=== PATIENT | male | born 1990 | race Hispanic/Latino ===

== ENCOUNTER 2020-07-29 20:28 | Observation (INO) | payer SELFPAY ==
[~2020-07-29 20:28] MED LIST: Iopamidol 370 76% 100 ML VIAL ONE
[2020-07-29 20:53] LABS: Bacteria/HPF None Seen HPF (None Seen); Bilirubin Negative (Negative); Blood, Urine Negative (Negative); Clarity Clear (Clear); Glucose, Urine (Dipstick) Normal (Negative); Ketone, Urine Negative (Negative); Leukocyte Negative Leu/uL (Negative); Nitrite Negative (Negative); Protein, Urine (Dipstick) 70 mg/dL (Neg-Trace); RBC/HPF 0-3 HPF (0-3); Specific Gravity, Urine 1.035 (1.002-1.036); Squamous Epithelial None Seen HPF (0-3); Urobilinogen Normal mg/dL (Less than 2); WBC/HPF 0-3 HPF (0-3); pH, Urine 5.5 (5.0-9.0)
[2020-07-29] MEDS ORDERED: Morphine 4 MG/ML VIAL ONE (21:09)
[2020-07-29] MEDS ORDERED: Ondansetron PF 4 MG/2 ML Vial ONE (21:09)
[2020-07-29 21:10] LABS: #Lymphocytes 1.5 thou/uL (1.20-3.40); %Basophils 0.1 % (0.0-1.0); %Eosinophils 0.1 % (0.0-10.0); %Lymphocytes 9.1 % (21.0-51.0); %Monocytes 5.9 % (0.0-10.0); %Neutrophils 84.8 % (42.0-75.0); Hemoglobin 15.7 g/dL (14.0-18.0); Mean Corpuscular HGB CONC 33.9 g/dL (32.0-36.0); Mean Corpuscular Hemoglobin 30.2 pg (27.0-31.0); Mean Corpuscular Volume 89.3 fL (78.0-98.0); Mean Platelet Volume 8.2 fL (7.4-10.4); Platelet Count 245 thou/uL (130-400); RBC Distribution Width 12.6 % (11.5-14.5); Red Blood Cell (RBC) Count 5.19 mill/uL (4.70-6.10); White Blood Cell (WBC) Count 16.5 thou/uL (4.8-10.8)
[2020-07-29 21:36] LABS: ALT (SGPT) 37 U/L (8-55); AST (SGOT) 29 U/L (5-34); Albumin 4.5 g/dL (3.5-5.0); Alkaline Phosphatase 61 U/L (40-110); Anion Gap 13 mmol/L (10-20); BUN (Urea Nitrogen) 20 mg/dL (8.9-20.6); Bilirubin, Total 0.5 mg/dL (0.2-1.2); Calc. Creatinine Clearance 0 mL/min (70-130); Calcium 9.9 mg/dL (7.8-10.44); Carbon Dioxide 26 mmol/L (22-29); Chloride 104 mmol/L (98-107); Estimated GFR-MDRD 87; Globulin 3.7 g/dL (2.4-3.5); Glucose 117 mg/dL (70-105); Potassium 4.4 mmol/L (3.5-5.1); Protein, Total 8.2 g/dL (6.0-8.3); Sodium 139 mmol/L (136-145)
--- NOTE | 2020-07-29 21:58 | CT ---
CT abdomen and pelvis with IV contrast HISTORY: Abdomen pain. FINDINGS: The lung bases are clear. Solid organs are intact. Circumaortic left renal vein is noted. No evidence of bowel obstruction. Multiple hyperdense fecaliths are present within the appendix that is dilated up to 1.1 cm and shows a thickened wall and small amount of adjacent fat stranding. No free air or free fluid. IMPRESSION : Acute appendicitis. Multiple internal appendicoliths. No evidence of complication.
[2020-07-29] MEDS ORDERED: Piperacillin/Tazobactam 3.375 GM VIAL ONE (22:17)
[2020-07-29] MEDS ORDERED: Morphine 4 MG/ML VIAL SLOW IVP PRN (23:39)
[2020-07-29] MEDS ORDERED: Ondansetron PF 4 MG/2 ML Vial IVP PRN (23:45)
[2020-07-29] MEDS ORDERED: Ondansetron ODT 4 MG TAB SL PRN (23:45)
[2020-07-30] MEDS: Sodium Chloride 0.9% 1,000 ML IV SCH ×3 (00:23→08:13)
[2020-07-30 01:15] VITALS: BMI 38.9
[2020-07-30] MEDS: Piperacillin/Tazobactam 3.375 GM in Sodium Chloride 0.9% 100 ML IVPB SCH ×3 (03:31→17:50)
--- NOTE | 2020-07-30 08:03 | HP ---
CHIEF COMPLAINT: Right lower quadrant abdominal pain. HISTORY OF PRESENT ILLNESS: The patient is a 30-year-old male with a 2-day history of right lower quadrant pain associated with nausea. No vomiting. No fever. CT shows appendicitis. PAST MEDICAL HISTORY: Obesity. PAST SURGICAL HISTORY: None. MEDICATIONS: No medications. ALLERGIES: NO KNOWN DRUG ALLERGIES. SOCIAL HISTORY: He is . He works in construction. No tobacco or alcohol. FAMILY HISTORY: Noncontributory. PHYSICAL EXAMINATION: VITAL SIGNS: Temperature 98.4, pulse 89, blood pressure 118/73. GENERAL: He is awake, alert, no apparent distress. HEENT: Unremarkable. LUNGS: Clear. HEART: Regular rate and rhythm. ABDOMEN: Soft. He is very tender with percussion tenderness in the right lower quadrant. No palpable mass. EXTREMITIES: Unremarkable. LABORATORY DATA: His white count is 16.5, H and H 15 and 46, platelet count 245. Electrolytes are fine. Elevated glucose of 117. Urinalysis clear. CT scan shows acute nonperforated appendicitis. ASSESSMENT: Acute appendicitis. PLAN: Laparoscopic appendectomy. CONSENT: I have discussed planned procedure as well as risk of bleeding, infection, injury to bowel and bladder, need to open. He understands and gives informed consent. Job ID: [id number]
[2020-07-30 08:58] LABS: SARS-CoV-2 NAA Rapid Test Not Detected (NotDetected)
[2020-07-30] MEDS ORDERED: PROPOFOL 200 MG/20 ML VIAL ONE (10:14)
[2020-07-30] MEDS ORDERED: Dexamethasone 20 MG/5 ML VIAL ONE (10:14)
[2020-07-30] MEDS ORDERED: Lidocaine 1% PF 5 ML VIAL ONE (10:14)
[2020-07-30] MEDS ORDERED: Succinylcholine 200 MG/10 ml SYRINGE FS ONE (10:14)
[2020-07-30] MEDS ORDERED: Rocuronium Bromide 10 MG/ML (10ML VIAL) ONE (10:14)
[2020-07-30] MEDS ORDERED: Ondansetron PF 4 MG/2 ML Vial ONE (10:14)
[2020-07-30] MEDS ORDERED: Glycopyrrolate 0.2 MG/ML 5 ML SYRINGE ONE (10:14)
[2020-07-30] MEDS ORDERED: Lidocaine 1% w/Epinephrine 1:100K 20 ML VIAL ONE (10:39)
[2020-07-30] MEDS ORDERED: Bupivacaine 0.25% HCL 30 ML VIAL ONE (10:39)
[2020-07-30] MEDS ORDERED: Fentanyl 100 MCG/2 ML VIAL ONE (11:04)
[2020-07-30] MEDS ORDERED: Midazolam HCl 2 mg/2 ml Vial ONE (11:04)
[2020-07-30] MEDS ORDERED: Promethazine HCl 25 MG/ML VIAL IM PRN ×2 (12:10→12:11)
[2020-07-30] MEDS ORDERED: Ondansetron HCl/PF 4 MG/2 ML Vial IVP PRN (12:10)
[2020-07-30] MEDS ORDERED: Promethazine HCl 25 MG/ML VIAL SLOW IVP PRN (12:10)
[2020-07-30] MEDS ORDERED: HYDROcodone/Acetaminophen 10/325 mg Tablet PO PRN ×2 (12:11)
[2020-07-30] MEDS ORDERED: Morphine 4 MG/ML VIAL SLOW IVP PRN (12:11)
[2020-07-30] MEDS ORDERED: Ondansetron PF 4 MG/2 ML Vial IVP PRN (12:11)
[2020-07-30] MEDS ORDERED: hydrALAZINE 20 MG/ML VIAL SLOW IVP PRN (12:11)
[2020-07-30] MEDS ORDERED: Dextrose 5% in Water 1,000 ML IV PRN (12:11)
[2020-07-30] MEDS ORDERED: Morphine 2 MG/ML VIAL SLOW IVP PRN (12:11)
[2020-07-30] MEDS ORDERED: Dextrose 50% Abboject 50 ML SYRINGE SLOW IVP PRN (12:11)
--- NOTE | 2020-07-30 13:25 | OP ---
DATE OF PROCEDURE: 07/30/2020 PREOPERATIVE DIAGNOSIS: Acute appendicitis. PROCEDURE PERFORMED: Laparoscopic appendectomy. INDICATIONS: A 30-year-old male with a 2-day history of right lower quadrant pain associated with nausea. CT scan showed acute appendicitis. FINDINGS: Gangrenous appendicitis with local perforation. DESCRIPTION OF PROCEDURE: After informed consent was obtained, the patient was taken to the operating room, given general endotracheal anesthesia, placed in supine position. Abdomen was prepped and draped in usual fashion. Local anesthesia was infiltrated subcutaneously and deep. A subumbilical incision was performed. Subcu divided sharply. The fascia was grasped and 2 stay sutures of 0 Vicryl placed through each side of midline and midline incised. Digital palpation revealed no local adhesions. Blunt 12-mm trocar inserted. Pneumoperitoneum was created to a pressure of 15 mmHg. A 0-degree laparoscope inserted under direct vision. Two 5-mm ports were placed, one suprapubic, one right lateral abdomen. There was some cloudy peritoneal fluid surrounding the gangrenous appendix. The mesoappendix was divided utilizing the LigaSure. The base of appendix was divided utilizing a linear 45-mm white load stapler. The appendix placed in an Endosac, removed from the abdomen through the umbilical port in the Endosac, applying a sputum trap. Cloudy peritoneal fluid from the pelvis was aspirated and collected for specimen for cultures. Then, once this was all cleaned, the area was thoroughly irrigated with saline. Hemostasis was assured. Trocars and retractors removed. The fascia was closed with interrupted 0 Vicryl suture. The skin closed with interrupted 4-0 Rapide. Dermabond applied. The patient tolerated the procedure well and transferred to Recovery in good condition. Sponge and needle count verified correct x2. Job ID: [id number]
[2020-07-30] MEDS: D5 1/2 NS w/20 mEq KCL 1,000 ML IV SCH ×2 (14:10→22:00)
[2020-07-30] MEDS: Ketorolac Tromethamine 30 MG/ML VIAL IVP SCH (17:49)
[2020-07-30] MEDS: Famotidine/PF 20 mg/2ml Vial SLOW IVP SCH (19:26)
[2020-07-30] MEDS: Famotidine 20 MG TAB PO SCH (21:17)
[2020-07-31] MEDS: Piperacillin/Tazobactam 3.375 GM in Sodium Chloride 0.9% 100 ML IVPB SCH ×2 (01:04→06:21)
[2020-07-31] MEDS: Ketorolac Tromethamine 30 MG/ML VIAL IVP SCH ×2 (01:05→06:20)
[2020-07-31] MEDS: D5 1/2 NS w/20 mEq KCL 1,000 ML IV SCH (01:05)
[2020-07-31 07:21] LABS: #Monocytes 0.9 thou/uL (0.11-0.59); #Neutrophils 8.1 thou/uL (1.40-6.50); %Basophils 0.2 % (0.0-1.0); %Eosinophils 0.1 % (0.0-10.0); %Lymphocytes 17.9 % (21.0-51.0); %Monocytes 8.1 % (0.0-10.0); %Neutrophils 73.7 % (42.0-75.0); Mean Corpuscular HGB CONC 33.7 g/dL (32.0-36.0); Mean Corpuscular Hemoglobin 30.8 pg (27.0-31.0); Mean Corpuscular Volume 91.4 fL (78.0-98.0); Mean Platelet Volume 8.3 fL (7.4-10.4); Platelet Count 223 thou/uL (130-400); RBC Distribution Width 12.7 % (11.5-14.5); Red Blood Cell (RBC) Count 4.55 mill/uL (4.70-6.10)
[2020-07-31 07:34] VITALS: BP 128/82; TEMP 98
[2020-07-31 07:43] LABS: Anion Gap 13 mmol/L (10-20); BUN (Urea Nitrogen) 14 mg/dL (8.9-20.6); Calc. Creatinine Clearance 204 mL/min (70-130); Calcium 8.4 mg/dL (7.8-10.44); Carbon Dioxide 20 mmol/L (22-29); Chloride 105 mmol/L (98-107); Estimated GFR-MDRD Greater than 90; Glucose 112 mg/dL (70-105); Sodium 134 mmol/L (136-145)
[2020-07-31] MEDS: Famotidine/PF 20 mg/2ml Vial SLOW IVP SCH (08:31)
[2020-07-31] MEDS: Famotidine 20 MG TAB PO SCH (08:38)
[2020-07-31] MEDS ORDERED: Enoxaparin Sodium 40 MG/0.4 ML SYRINGE SC SCH (09:00)
--- NOTE | 2020-08-02 08:31 | DIS ---
DATE OF ADMISSION: 07/29/2020 DATE OF DISCHARGE: 07/31/2020 DISCHARGE DIAGNOSIS: Gangrenous appendicitis. PROCEDURES DURING ADMISSION: Laparoscopic appendectomy. HOSPITAL COURSE: The patient was admitted, taken to the operating room, where he underwent a laparoscopic appendectomy. Postoperatively, he has done well. He has remained afebrile. His pain is minimal. He is tolerating a diet. He is discharged home on hydrocodone, Zofran, and doxycycline. He will follow up with me in 2 weeks. Job ID: [id number]
== END 2020-07-31 10:05 | disposition home or self-care (01) ==
LOC: ERS 20:28 → T4-A 22:25
PROVIDERS: ADMIT Surgery; ATTEND Surgery
PROC: 0DTJ4ZZ Resection of Appendix, Percutaneous Endoscopic Approach (ICD-10-PCS; principal; 2020-07-30)
DX: K35.33 Acute appendicitis with perforation, localized peritonitis, and gangrene, with abscess (principal); Z20.828 Contact with and (suspected) exposure to other viral communicable diseases
CPT/HCPCS: 36415; 74177; 80048; 80053; 81003; 81015; 83690; 85025; 87070; 87205; 87635; 88304; 96365; 96375; 96376; G0378; J1100; J1885; J2250; J2270; J2405; J2543; J2704; J3010; J3480; J3490; Q9967; S0020; U0002; U0003